=== PATIENT | female | born 1955 | race Hispanic/Latino ===

== ENCOUNTER → 2019-06-04 | Outpatient (CLI) | payer OTHER ==
--- NOTE | 2019-06-04 13:48 | Diagnostic Imaging Report ---
Abdomen, 1 view. History: Renal calculus. Comparison: None available. Findings: Left internal ureteral stent is present. Small stones are projected over the lower pole of the left kidney. A 5 cm stone is seen adjacent to the internal ureteral stent at the level of L4. A large oval calcification in the right upper quadrant is suggestive of calcified gallbladder wall. Air is scattered throughout nondilated small and large bowel. There are no masses or abnormal calcifications. The osseous structures are intact. IMPRESSION: 1. Left renal and ureteral calculi. 2. Possible gallbladder wall calcification. Consider further evaluation with ultrasound or CT. Signed by: Toribio Mann on 06/04/2019 1:45 PM
== END ==
LOC: RAD 12:37
PROVIDERS: ATTEND Urology
DX: N20.0 Calculus of kidney (principal)
CPT/HCPCS: 74018

== ENCOUNTER → 2019-07-15 | Day surgery (SDC) | payer OTHER ==
[~2019-07-15] MED LIST: ACETAMINOPHEN/CODEINE 300MG - 30MG TAB ONE; B&O 60MG R/S 60 MG SUPP PR ONE; BENICAR20 MG PO; CEFAZOLIN SOD 1 GM/NS 50ML 50 ML IV ONE; DEXAMETHASONE SOD PHOS INJ 4 MG/ML VIAL ONE; FENTANYL CITRATE/PF 100MCG/2 ML INJ ONE; HYDRALAZINE HCL 20 MG/ML VIAL ONE; IOPAMIDOL 300MG/ML 50ML INFUS..BTL IV ONE; KETOROLAC TROMETHAMINE 30 MG/ML VIAL ONE; LABETALOL HCL 0 ML ONE; LIDOCAINE HCL 2% LOCAL INJ 5 ML SDV VIAL INJ ONE; MIDAZOLAM HCL 2 MG/2 ML VIAL ONE; ONDANSETRON HCL INJ 2MG/ML 2ML 2 MG/ML VIAL ONE; PROPOFOL IV EMULSION 10 MG/ML 20 ML VIAL ONE; SEVOFLURANE INHAL SOLN 250 ML PEN BTL ONE
--- OUTSIDE RECORDS SUMMARY | 2019-07-15 06:58 | XMS REPORT ---
Author Author [facility] Address Unknown Phone Unavailable Care Team Providers Care Sponge Packer Name Role Phone RAYMUNDO CALDERÓN Unavailable Unavailable Payers Payer Name Policy Type Policy Number Effective Date Expiration Date Problems This patient has no known problems. Allergies, Adverse Reactions, Alerts Allergy Name Allergy Type Status Severity Reaction(s) Onset Date Inactive Date Treating Clinician Comments No Known Allergies DA Active U 2019-04-12 00:00:00 No Known Allergies DA Active U 2018-05-04 00:00:00 Medications This patient has no known medications. Results Test Description Test Time Test Comments Text Results Atomic Results Result Comments [address] ([facility]) 2019-06-04 13:34:00 [place] [address] Patient Name: RUBIO RODRIGUEZ MR #: [id number] : 1955 Age/Sex: 64/F Req #: [id number] [facility] Physician: Ordered by: RAYMUNDO CALDERÓN MD Report #: [id number] Location: [facility] Room/Bed: Procedure: [id number] DX/ABDOMEN-1VIEW (KUB) Exam Date: 06/04/19 Exam Time: 1245 REPORT STATUS: Signed Abdomen, 1 view. History: Renal calculus. Comparison: None available. Findings: Left internal ureteral stent is present. Small stones are projected over the lower pole of the left kidney. A 5 cm stone is seen adjacent to the internal ureteral stent at the level of L4. A large oval calcification in the right upper quadrant is suggestive of calcified gallbladder wall. Air is scattered throughout nondilated small and large bowel. There are no masses or abnormal calcifications. The osseous structures are intact. IMPRESSION: 1. Left renal and ureteral calculi. 2. Possible gallbladder wall calcification. Consider further evaluation with ultrasound or CT. Signed by: Toribio Mann on 06/04/2019 1:45 PM Dictated By: TORIBIO MANN MD 1345 Transcribed By: ZULEIMA on 06/04/19 1345 COPY TO: RAYMUNDO CALDERÓN MD BASIC METABOLIC PANEL 2019-05-19 13:28:00 SODIUM (test code=NA) 141 mmol/L 136-145 POTASSIUM (test code=K) 4.3 mmol/L 3.5-5.1 CHLORIDE (test code=CL) 105.0 mmol/L 98-107 CARBON DIOXIDE (test code=CO2) mmol/L 21-32 ANION GAP (test code=GAP) 10-20 GLUCOSE (test code=GLU) mg/dL 74-106 BLOOD UREA NITROGEN (test code=BUN) mg/dL 7-18 GLOMERULAR FILTRATION RATE (test code=GFR) mL/min >=60 CREATININE (test code=CREAT) mg/dL 0.55-1.02 BUN/CREATININE RATIO (test code=BUN/CREA) 10-20 CALCIUM (test code=CA) mg/dL 8.5-10.1 BASIC METABOLIC [id number] 13:28:00* Test Item Value Reference Range Comments SODIUM (test code=NA) 141 mmol/L 136-145 POTASSIUM (test code=K) 4.3 mmol/L 3.5-5.1 CHLORIDE (test code=CL) 105.0 mmol/L 98-107 CARBON DIOXIDE (test code=CO2) 30.0 mmol/L 21-32 ANION GAP (test code=GAP) 10.3 10-20 GLUCOSE (test code=GLU) 89 mg/dL 74-106 BLOOD UREA NITROGEN (test code=BUN) 12 mg/dL 7-18 GLOMERULAR FILTRATION RATE (test code=GFR) > 60 mL/min >=60 Estimated GFR by using Modified MDRD formula.Chronic kidney disease is defined as either kidney damageor GFR <60 mL/min/1.73 m2 for >3 months. CREATININE (test code=CREAT) 0.70 mg/dL 0.55-1.02 Note change in reference range due to change in reagent. BUN/CREATININE RATIO (test code=BUN/CREA) 17.1 10-20 CALCIUM (test code=CA) 9.6 mg/dL 8.5-10.1 - XR ABDOMEN AP 1 [id number] 14:25:00 FAX: Bia Mock MD [phone] [place]: St: ADM FAX: Raymundo Crow MD [phone] FAX: Craig Larios [facility] [phone] Name: RUBIO RODRIGUEZ [facility] : 1955 Age/S: 64/F [address] [facility] Unit #: [id number] Loc: V.3079 [place] [address] Phys: Raymundo Calderón MD Acct: [id number] Dis Date: Status: ADM IN ONE #: [phone] Exam Date: 04/14/2019 1400 FAX #: [phone] Reason: OBSTRUCTING STONE IN LEFT URETER EXAMS: CPT CODE: [id number] XR ABDOMEN AP 1 V [id number] TECHNIQUE - XR ABDOMEN AP 1 V . COMPARISON: CT abdomen and pelvis 04/14/2019 HISTORY: 64 years Female OBSTRUCTING STONE IN LEFT URE TER FINDINGS: Left ureteral stent i n place. 6 mm stone overlies proximal left ureter stent. Likely no change in position since the previous CT scan. Retention of stool in colon. Nonob structive bowel gas pattern. Gallstones in the gallbladder. IMPRESSION: Left ureteral stent in place. 6 mm stone overlies proximal left ureter stent. Likely no change in position since the pre vious CT scan. Retention of stool in colon. Nonobstructive bowel gas pat tern. Gallstones in the gallbladder. at 1425 Reported and sig nargis by: Craig Mcclure M.D. CC: Bia Mock MD; Raymundo Calderón MD; Craig Larios Technologist: RT GATO([place]) Trnscrd Date/Time/By: 04/14/2019 (7562) : By: Cheli Orig Print D/T: S: 04/14/2019 (4605) PAGE 1 Signed Report COMPREHENSIVE METABOLIC PANEL 2019-04-14 08:36:00* Test Item Value Reference Range Comments SODIUM (test code=NA) 141 mmol/L 136-145 POTASSIUM (test code=K) 3.6 mmol/L 3.5-5.1 CHLORIDE (test code=CL) 108.0 mmol/L 98-107 CARBON DIOXIDE (test code=CO2) 25.0 mmol/L 21-32 ANION GAP (test code=GAP) 11.6 10-20 GLUCOSE (test code=GLU) 119 mg/dL 74-106 BLOOD UREA NITROGEN (test code=BUN) 16 mg/dL 7-18 GLOMERULAR FILTRATION RATE (test code=GFR) > 60 mL/min >=60 Estimated GFR by using Modified MDRD formula.Chronic kidney disease is defined as either kidney damageor GFR <60 mL/min/1.73 m2 for >3 months. CREATININE (test code=CREAT) 0.60 mg/dL 0.55-1.02 Note change in reference range due to change in reagent. BUN/CREATININE RATIO (test code=BUN/CREA) 26.6 10-20 TOTAL PROTEIN (test code=PROT) 6.6 gram/dL 6.4-8.2 ALBUMIN (test code=ALB) 3.1 g/dL 3.4-5.0 GLOBULIN (test code=GLOB) 3.5 gram/dL 2.7-4.2 ALBUMIN/GLOBULIN RATIO (test code=A/G) 0.9 0.75-1.50 CALCIUM (test code=CA) 8.1 mg/dL 8.5-10.1 BILIRUBIN TOTAL (test code=BILT) 0.30 mg/dL 0.0-1.0 SGOT/AST (test code=AST) 33 IUnit/L 15-37 SGPT/ALT (test code=ALT) 62 IUnit/L 12-78 ALKALINE PHOSPHATASE TOTAL (test code=ALKP) 104 IUnit/L 45-117 Note change in reference range due to change in reagent. CBC W/AUTO [id number] 05:30:00* Test Item Value Reference Range Comments WHITE BLOOD CELL (test code=WBC) 7.9 K/mm3 4.5-12.5 RED BLOOD CELL (test code=RBC) 3.86 mill/mm3 3.7-5.2 HEMOGLOBIN (test code=HGB) 11.5 gram/dL 11.5-15.5 HEMATOCRIT (test code=HCT) 34.5 % 36.0-46.0 MEAN CELL VOLUME (test code=MCV) 89.4 fL 80-98 MEAN CELL HGB (test code=MCH) 29.8 picogram 27.0-33.0 MEAN CELL HGB CONCETRATION (test code=MCHC) 33.3 gram/dL 33.0-36.0 RED CELL DISTRIBUTION WIDTH (test code=RDW) 12.0 % 11.6-16.2 RED CELL DISTRIBUTION WIDTH SD (test code=RDW-SD) 38.8 fL 37.0-51.0 PLATELET COUNT (test code=PLT) 226 K/mm3 150-450 MEAN PLATELET VOLUME (test code=MPV) 9.8 fL 6.7-11.0 NEUTROPHIL % (test code=NT%) 73.2 % 39.0-69.0 IMMATURE GRANULOCYTE % (test code=IG%) 0.1 % 0.0-5.0 LYMPHOCYTE % (test code=LY%) 20.1 % 25.0-55.0 MONOCYTE % (test code=MO%) 6.3 % 0.0-10.0 EOSINOPHIL % (test code=EO%) 0.0 % 0.0-5.0 BASOPHIL % (test code=BA%) 0.3 % 0.0-1.0 NUCLEATED RBC % (test code=NRBC%) 0.0 % 0-0 NEUTROPHIL # (test code=NT#) 5.77 K/mm3 1.8-7.7 IMMATURE GRANULOCYTE # (test code=IG#) 0.01 x10 3/uL 0-0.03 LYMPHOCYTE # (test code=LY#) 1.58 K/mm3 1.0-5.0 MONOCYTE # (test code=MO#) 0.50 K/mm3 0-0.8 EOSINOPHIL # (test code=EO#) 0.00 K/mm3 0.0-0.5 BASOPHIL # (test code=BA#) 0.02 K/mm3 0.0-0.2 NUCLEATED RBC # (test code=NRBC#) 0.00 K/mm3 0.0-0.1 MANUAL DIFF REQUIRED (test code=MDIFF) NO COMPREHENSIVE METABOLIC [id number] 08:31:00* Test Item Value Reference Range Comments SODIUM (test code=NA) 141 mmol/L 136-145 POTASSIUM (test code=K) 3.8 mmol/L 3.5-5.1 CHLORIDE (test code=CL) 109.0 mmol/L 98-107 CARBON DIOXIDE (test code=CO2) 26.0 mmol/L 21-32 ANION GAP (test code=GAP) 9.8 10-20 GLUCOSE (test code=GLU) 109 mg/dL 74-106 BLOOD UREA NITROGEN (test code=BUN) 12 mg/dL 7-18 GLOMERULAR FILTRATION RATE (test code=GFR) > 60 mL/min >=60 Estimated GFR by using Modified MDRD formula.Chronic kidney disease is defined as either kidney damageor GFR <60 mL/min/1.73 m2 for >3 months. CREATININE (test code=CREAT) 0.60 mg/dL 0.55-1.02 Note change in reference range due to change in reagent. BUN/CREATININE RATIO (test code=BUN/CREA) 20.0 10-20 TOTAL PROTEIN (test code=PROT) 6.5 gram/dL 6.4-8.2 ALBUMIN (test code=ALB) 3.2 g/dL 3.4-5.0 GLOBULIN (test code=GLOB) 3.3 gram/dL 2.7-4.2 ALBUMIN/GLOBULIN RATIO (test code=A/G) 1.0 0.75-1.50 CALCIUM (test code=CA) 8.5 mg/dL 8.5-10.1 BILIRUBIN TOTAL (test code=BILT) 0.30 mg/dL 0.0-1.0 SGOT/AST (test code=AST) 28 IUnit/L 15-37 SGPT/ALT (test code=ALT) 49 IUnit/L 12-78 ALKALINE PHOSPHATASE TOTAL (test code=ALKP) 85 IUnit/L 45-117 Note change in reference range due to change in reagent. CBC W/AUTO [id number] 08:18:00* Test Item Value Reference Range Comments WHITE BLOOD CELL (test code=WBC) 8.2 K/mm3 4.5-12.5 RED BLOOD CELL (test code=RBC) 3.96 mill/mm3 3.7-5.2 HEMOGLOBIN (test code=HGB) 11.8 gram/dL 11.5-15.5 HEMATOCRIT (test code=HCT) 35.8 % 36.0-46.0 MEAN CELL VOLUME (test code=MCV) 90.4 fL 80-98 MEAN CELL HGB (test code=MCH) 29.8 picogram 27.0-33.0 MEAN CELL HGB CONCETRATION (test code=MCHC) 33.0 gram/dL 33.0-36.0 RED CELL DISTRIBUTION WIDTH (test code=RDW) 12.1 % 11.6-16.2 RED CELL DISTRIBUTION WIDTH SD (test code=RDW-SD) 40.1 fL 37.0-51.0 PLATELET COUNT (test code=PLT) 215 K/mm3 150-450 MEAN PLATELET VOLUME (test code=MPV) 10.0 fL 6.7-11.0 NEUTROPHIL % (test code=NT%) 64.7 % 39.0-69.0 IMMATURE GRANULOCYTE % (test code=IG%) 0.2 % 0.0-5.0 LYMPHOCYTE % (test code=LY%) 25.0 % 25.0-55.0 MONOCYTE % (test code=MO%) 9.0 % 0.0-10.0 EOSINOPHIL % (test code=EO%) 0.6 % 0.0-5.0 BASOPHIL % (test code=BA%) 0.5 % 0.0-1.0 NUCLEATED RBC % (test code=NRBC%) 0.0 % 0-0 NEUTROPHIL # (test code=NT#) 5.27 K/mm3 1.8-7.7 IMMATURE GRANULOCYTE # (test code=IG#) 0.02 x10 3/uL 0-0.03 LYMPHOCYTE # (test code=LY#) 2.04 K/mm3 1.0-5.0 MONOCYTE # (test code=MO#) 0.73 K/mm3 0-0.8 EOSINOPHIL # (test code=EO#) 0.05 K/mm3 0.0-0.5 BASOPHIL # (test code=BA#) 0.04 K/mm3 0.0-0.2 NUCLEATED RBC # (test code=NRBC#) 0.00 K/mm3 0.0-0.1 MANUAL DIFF REQUIRED (test code=MDIFF) NO CBC W/AUTO [id number] 08:16:00* Test Item Value Reference Range Comments WHITE BLOOD CELL (test code=WBC) K/mm3 4.5-12.5 RED BLOOD CELL (test code=RBC) mill/mm3 3.7-5.2 HEMOGLOBIN (test code=HGB) 11.8 gram/dL 11.5-15.5 HEMATOCRIT (test code=HCT) % 36.0-46.0 MEAN CELL VOLUME (test code=MCV) fL 80-98 MEAN CELL HGB (test code=MCH) picogram 27.0-33.0 MEAN CELL HGB CONCETRATION (test code=MCHC) gram/dL 33.0-36.0 RED CELL DISTRIBUTION WIDTH (test code=RDW) % 11.6-16.2 RED CELL DISTRIBUTION WIDTH SD (test code=RDW-SD) fL 37.0-51.0 PLATELET COUNT (test code=PLT) K/mm3 150-450 MEAN PLATELET VOLUME (test code=MPV) fL 6.7-11.0 NEUTROPHIL % (test code=NT%) % 39.0-69.0 IMMATURE GRANULOCYTE % (test code=IG%) % 0.0-5.0 LYMPHOCYTE % (test code=LY%) % 25.0-55.0 MONOCYTE % (test code=MO%) % 0.0-10.0 EOSINOPHIL % (test code=EO%) % 0.0-5.0 BASOPHIL % (test code=BA%) % 0.0-1.0 NEUTROPHIL # (test code=NT#) K/mm3 1.8-7.7 LYMPHOCYTE # (test code=LY#) K/mm3 1.0-5.0 MONOCYTE # (test code=MO#) K/mm3 0-0.8 EOSINOPHIL # (test code=EO#) K/mm3 0.0-0.5 BASOPHIL # (test code=BA#) K/mm3 0.0-0.2 COMPREHENSIVE METABOLIC [id number] 08:09:00* Test Item Value Reference Range Comments SODIUM (test code=NA) 141 mmol/L 136-145 POTASSIUM (test code=K) 3.8 mmol/L 3.5-5.1 CHLORIDE (test code=CL) 109.0 mmol/L 98-107 CARBON DIOXIDE (test code=CO2) mmol/L 21-32 ANION GAP (test code=GAP) 10-20 GLUCOSE (test code=GLU) mg/dL 74-106 BLOOD UREA NITROGEN (test code=BUN) mg/dL 7-18 GLOMERULAR FILTRATION RATE (test code=GFR) mL/min >=60 CREATININE (test code=CREAT) mg/dL 0.55-1.02 BUN/CREATININE RATIO (test code=BUN/CREA) 10-20 TOTAL PROTEIN (test code=PROT) gram/dL 6.4-8.2 ALBUMIN (test code=ALB) g/dL 3.4-5.0 GLOBULIN (test code=GLOB) gram/dL 2.7-4.2 ALBUMIN/GLOBULIN RATIO (test code=A/G) 0.75-1.50 CALCIUM (test code=CA) mg/dL 8.5-10.1 BILIRUBIN TOTAL (test code=BILT) mg/dL 0.0-1.0 SGOT/AST (test code=AST) IUnit/L 15-37 SGPT/ALT (test code=ALT) IUnit/L 12-78 ALKALINE PHOSPHATASE TOTAL (test code=ALKP) IUnit/L 45-117 THYROID PROFILE [id number] 11:23:00* Test Item Value Reference Range Comments T3 UPTAKE (test code=T3UP) 32.0 % 30.0-40.0 T4 (THYROXINE) (test code=T4) 7.6 ug/dL 4.5-13.9 T7 (FREE THYROXINE INDEX) (test code=T7) 2.43 FTI 1.3-5.1 THYROID STIMULATING HORMONE (test code=TSH) 1.470 uIU/mL 0.36-3.74 TSH REFERENCE RANGES: EUTHYROID: 0.35 - 4.3 mIU/mL HYPO : > 5.5 mIU/mL HYPER : < 0.35 mIU/mL [id number] 11:14:00* Test Item Value Reference Range Comments GLYCOSYLATED HEMOGLOBIN (HA1C) (test code=GLYHGB) 5.9 % HbA1 4.8-6.0 ESTIMATED AVERAGE GLUCOSE (test code=EAG) 123 MG/DL - CT ABD PELVIS [id number] 22:23:00 Name: RUBIO RODRIGUEZ [facility] : 1955 Age/S: 64 / F [address] [facility] Unit #: [id number] Loc: [place] [address] Phys: Jeanette Latham MD Acct: [id number] Dis Date: Status: REG ER PHONE #: [phone] Exam Date: 04/11/2019 2210 FAX #: [phone] Reason: luq pain , hx diverticulitis EXAMS: CPT CODE: [id number] CT ABD PELVIS W/CONT 84107 HISTORY: Left upper quadrant abdominal pain , hx diverticulitis TECHNIQUE: Immediate and delayed [address] images were obtained through the abdomen and pelvis after IV administration of 100 mL of Isovue-370 contrast. Sagittal and coronal reformatted images were generated. Automated exposure control for dose reduction. COMPARISON: 05/04/18 FINDINGS: Lung bases are clear. Cardiomegaly. Cholelithiasis. No gall bladder wall thickening or pericholecystic fluid. No biliary dilation. Hepatomegaly. Stable nonenhancing 3 cm right hepatic cyst. Pancreas, spleen, and adrenal glands are unremarkable. Obstructing 8 mm left UPJ calculus (1370 HU). Moderate left hydronephrosis. 3 mm left inf erior pole calyceal calculus. Delayed left nephrogram/pyelogram. Right kidney and collecting system unremarkable. Limited eval uation the GI tract without oral contrast. Stomach, small bowel, appendix are unremarkable. Sigmoid diverticulosis. No free air or free flui d. No lymphadenopathy. Abdominal aorta is normal in caliber. Urinary bladder is unremarkable. Hysterectomy. No pelvic free fluid. Degenerative changes of the spine, sacroiliac joints, and hips. IMPRESSION: Obstructing 8 mm left UPJ calculus with moderate hydronephrosis and delayed nephrogram/pyelogram.. 3 mm left inferior pole calyceal calculus. Cholelithiasis. No CT evidence of acute cholecystitis. No biliary dilation. PAGE 1 Signed Report (CONTINUED) Name: RUBIO RODRIGUEZ [facility] : 1954 Age/S: 64 / F [address] [facility] Unit #: [id number] Loc: [place] [address] Phys: Jeanette Latham MD Acct: [id number] Dis Date: Status: REG ER PHONE #: [phone] Exam Date: 04/11/20192209 FAX #: [phone] Reason: luq pain , hx diverticulitis EXAMS: CPT CODE: [id number] CT ABD PELVIS W/CONT 62602 <Continued> Sigmoid diverticulosis without evidence of diverticulitis. at 2223 Reported and signed by: Mayra Lundy D.O. CC: Jeanette Latham MD Technologist:Christopher Quan, RT(R)(CT); ... CTDI: DLP: Trnscb Date/Time: 04/11/2019 (222) [email or web address] Orig Print D/T: S: 04/11/2019 (2226) PAGE 2 Signed Report BASIC METABOLIC [id number] 21:50:00* Test Item Value Reference Range Comments SODIUM (test code=NA) 138 mmol/L 136-145 POTASSIUM (test code=K) 3.3 mmol/L 3.5-5.1 CHLORIDE (test code=CL) 104.0 mmol/L 98-107 CARBON DIOXIDE (test code=CO2) 28.0 mmol/L 21-32 ANION GAP (test code=GAP) 9.3 10-20 GLUCOSE (test code=GLU) 166 mg/dL 74-106 BLOOD UREA NITROGEN (test code=BUN) 16 mg/dL 7-18 GLOMERULAR FILTRATION RATE (test code=GFR) > 60 mL/min >=60 Estimated GFR by using Modified MDRD formula.Chronic kidney disease is defined as either kidney damageor GFR <60 mL/min/1.73 m2 for >3 months. CREATININE (test code=CREAT) 0.90 mg/dL 0.55-1.02 Note change in reference range due to change in reagent. BUN/CREATININE RATIO (test code=BUN/CREA) 17.5 10-20 CALCIUM (test code=CA) 9.8 mg/dL 8.5-10.1 HEPATIC FUNCTION [id number] 21:50:00* Test Item Value Reference Range Comments TOTAL PROTEIN (test code=PROT) 7.7 gram/dL 6.4-8.2 ALBUMIN (test code=ALB) 3.9 g/dL 3.4-5.0 GLOBULIN (test code=GLOB) 3.8 gram/dL 2.7-4.2 ALBUMIN/GLOBULIN RATIO (test code=A/G) 1.0 0.75-1.50 BILIRUBIN TOTAL (test code=BILT) 0.40 mg/dL 0.0-1.0 BILIRUBIN DIRECT (test code=BILD) 0.13 mg/dL 0.0-0.20 SGOT/AST (test code=AST) 15 IUnit/L 15-37 SGPT/ALT (test code=ALT) 46 IUnit/L 12-78 ALKALINE PHOSPHATASE TOTAL (test code=ALKP) 96 IUnit/L 45-117 Note change in reference range due to change in reagent. [id number] 21:50:00* Test Item Value Reference Range Comments LIPASE (test code=LIP) 145 U/L 73.0-393.0 URINALYSIS [id number] 21:47:00* Test Item Value Reference Range Comments UA COLOR (test code=COLU) Light-Yellow YELLOW UA APPEARANCE (test code=APPU) CLEAR CLEAR UA GLUCOSE DIPSTICK (test code=DGLUU) NEGATIVE mg/dL NEGATIVE UA BILIRUBIN DIPSTICK (test code=BILU) NEGATIVE mg/dL NEGATIVE UA KETONE DIPSTICK (test code=KETU) NEGATIVE mg/dL NEGATIVE UA SPECIFIC GRAVITY (test code=SGU) 1.014 1.001-1.035 UA BLOOD DIPSTICK (test code=BRIDGETTE) 0.5 mg/dL (2+) mg/dL NEGATIVE UA PH DIPSTICK (test code=ZOILA) 6.0 5.0-8.0 UA PROTEIN DIPSTICK (test code=PROU) 10 (Trace) mg/dL NEGATIVE UA UROBILINIOGEN DIPSTICK (test code=URO) Normal mg/dL NEGATIVE UA NITRITE DIPSTICK (test code=MARTIN) NEGATIVE NEGATIVE UA LEUKOCYTE ESTERASE W REFLEX (test code=LEUUR) NEGATIVE Amanda/uL NEGATIVE UA WBC (test code=WBCU) 0-5 per HPF 0-5 UA RBC (test code=RBCU) 101-150 #/HPF 0-5 UA EPITHELIAL CELLS (test code=EPIU) FEW per HPF FEW UA BACTERIA (test code=BACU) NONE SEEN #/HPF NONE UA MUCUS (test code=MUCU) FEW #/LPF FEW Urine Source? Clean CatchBASIC METABOLIC [id number] 21:45:00* Test Item Value Reference Range Comments SODIUM (test code=NA) 138 mmol/L 136-145 POTASSIUM (test code=K) 3.3 mmol/L 3.5-5.1 CHLORIDE (test code=CL) 104.0 mmol/L 98-107 CARBON DIOXIDE (test code=CO2) mmol/L 21-32 ANION GAP (test code=GAP) 10-20 GLUCOSE (test code=GLU) mg/dL 74-106 BLOOD UREA NITROGEN (test code=BUN) mg/dL 7-18 GLOMERULAR FILTRATION RATE (test code=GFR) mL/min >=60 CREATININE (test code=CREAT) mg/dL 0.55-1.02 BUN/CREATININE RATIO (test code=BUN/CREA) 10-20 CALCIUM (test code=CA) mg/dL 8.5-10.1 HEPATIC FUNCTION [id number] 21:45:00* Test Item Value Reference Range Comments TOTAL PROTEIN (test code=PROT) gram/dL 6.4-8.2 ALBUMIN (test code=ALB) g/dL 3.4-5.0 GLOBULIN (test code=GLOB) gram/dL 2.7-4.2 ALBUMIN/GLOBULIN RATIO (test code=A/G) 0.75-1.50 BILIRUBIN TOTAL (test code=BILT) mg/dL 0.0-1.0 BILIRUBIN DIRECT (test code=BILD) mg/dL 0.0-0.20 SGOT/AST (test code=AST) IUnit/L 15-37 SGPT/ALT (test code=ALT) IUnit/L 12-78 ALKALINE PHOSPHATASE TOTAL (test code=ALKP) IUnit/L 45-117 [id number] 21:45:00* Test Item Value Reference Range Comments LIPASE (test code=LIP) U/L 73.0-393.0 CBC W/O [id number] 20:59:00* Test Item Value Reference Range Comments WHITE BLOOD CELL (test code=WBC) 11.7 K/mm3 4.5-12.5 RED BLOOD CELL (test code=RBC) 4.45 mill/mm3 3.7-5.2 HEMOGLOBIN (test code=HGB) 13.2 gram/dL 11.5-15.5 HEMATOCRIT (test code=HCT) 40.3 % 36.0-46.0 MEAN CELL VOLUME (test code=MCV) 90.6 fL 80-98 MEAN CELL HGB (test code=MCH) 29.7 picogram 27.0-33.0 MEAN CELL HGB CONCETRATION (test code=MCHC) 32.8 gram/dL 33.0-36.0 RED CELL DISTRIBUTION WIDTH (test code=RDW) 12.1 % 11.6-16.2 PLATELET COUNT (test code=PLT) 229 K/mm3 150-450 MEAN PLATELET VOLUME (test code=MPV) 9.5 fL 6.7-11.0 CBC W/O [id number] 20:58:00* Test Item Value Reference Range Comments WHITE BLOOD CELL (test code=WBC) K/mm3 4.5-12.5 RED BLOOD CELL (test code=RBC) mill/mm3 3.7-5.2 HEMOGLOBIN (test code=HGB) 13.2 gram/dL 11.5-15.5 HEMATOCRIT (test code=HCT) 40.3 % 36.0-46.0 MEAN CELL VOLUME (test code=MCV) fL 80-98 MEAN CELL HGB (test code=MCH) picogram 27.0-33.0 MEAN CELL HGB CONCETRATION (test code=MCHC) gram/dL 33.0-36.0 RED CELL DISTRIBUTION WIDTH (test code=RDW) % 11.6-16.2 PLATELET COUNT (test code=PLT) K/mm3 150-450 MEAN PLATELET VOLUME (test code=MPV) fL 6.7-11.0 SCR MAMM BILATERAL AGUEDA CAD [id number] 09:16:04 - SCR MAMM BILATERAL AGUEDA CAD DIGITALBILATERAL DIGITAL SCREENING MAMMOGRAM 3D/2D WITH CAD: 03/16/2019CLINICAL: Asymptomatic. Digital breast tomosynthesis was performed in addition to routine CC and MLO views. Current mammographic images were evaluated by either a [employer] M-Vu or a [employer] ImageChecker CAD (computer aided detection system). Comparison is made to exams dated 05/31/2016 mammogram and 07/05/2010 mammogram - [facility]-. The tissue of both breasts is heterogeneously dense. This may lower the sensitivity of mammography. A 5 mm focal asymmetry, in the left upper outer quadrant, approximately 6 cm from the nipple, this is best seen on CC slice #30.No suspicious mass, architectural dis tortion, malignant type calcification, or lymph node abnormality detected in the right breast. IMPRESSION: INCOMPLETE ASSESSMENT: ADDITIONAL IMAGING EVALUATION RECOMMENDEDA 5 mm focal asymmetry, in the left upper outer quadrant, posterior depth. Spot compression tomosynthesis and possible ultrasound are recommended a t this time.Arias Dozier M.D. ss/:03/18/2019 09:16:04 Imaging Genevieve hnologist: Celsa Vines , [facility]-FWletter sent: Additional Jeanne ging Mammogram BI-RADS: 0 Indeterminate
[2019-07-15 12:15] VITALS: BP 110/57
--- NOTE | 2019-07-15 15:31 | Operative Report ---
DATE OF PROCEDURE: 07/15/2019 SURGEON: Raymundo Calderón MD SERVICE: Urology. PREOPERATIVE DIAGNOSES: 1. Left nephrolithiasis. 2. Left ureterolithiasis. 3. Double-J stents. 4. Microhematuria. POSTOPERATIVE DIAGNOSES: 1. Left nephrolithiasis. 2. Left ureterolithiasis. 3. Double-J stents. 4. Microhematuria. OPERATIONS PERFORMED: 1. Cystoscopy and right retrograde pyelograms under fluoroscopic control, not related to the other side. 2. Removal of double-J stent from the left side. 3. Left retrograde pyelograms under fluoroscopic control. 4. Left ureteroscopy with laser fragmentation of the kidney stones and laser fragmentation of ureter stone. 5. Removal of stone with stone basket. 6. Placement of double-J stent to the left side, 7-Finnish 24 cm long. 7. Interpretation of x-ray, radiologist not present. 8. Supervision of fluoroscopy, radiologist not present. SECURITIES SETTLEMENT PROCESSOR: None. ANESTHESIA: General. CLINICAL INDICATION NOTE: This is a 64-year-old patient, who came for further treatment of nephrolithiasis. She does have a stone on the left side. The procedure was discussed with the patient. She is aware that she may need a stent for a longer period of time. DESCRIPTION OF PROCEDURE AND FINDINGS: After proper level of anesthesia was achieved, the patient was placed in lithotomy position, prepped and draped in a sterile fashion. Urethra inspected is unremarkable. Bladder outlet is normal. Bladder mucosa has no tumor. Double-J stent was protruding from the left side and appeared to be quite calcified already. Open-end catheter was inserted to the right side. Retrograde pyelogram demonstrated an unremarkable collecting system and ureter. Drainage was prompt. Following this, an open-end catheter was inserted by the double-J stent and it was removed. Retrograde pyelogram demonstrating some dilation of the upper collecting system, not clearly seen any calcification along the ureter. A wire was kept in place and a flexible ureteroscopy was done. Small fragments of stone were identified in the lower pole and fragmented with the holmium laser with 200 fiber. Following this, additional stones were fragmented along with the ureter with a semi-rigid ureteroscope. Stone was also removed with the stone basket and sent for analysis. A guidewire was kept in place and a 7-Finnish 24 cm long double-J stent was properly positioned on the left side. Interpretation of x-ray was done by me and supervision of fluoroscopy done by me, radiologist not present. Follow up for the patient given. The patient was able to void before discharge. She will follow in the office and advised that should any acute problem evolve to come to the ER. MD EVERETT Redmond/KILEY /[id number]
== END | disposition home or self-care (01) ==
LOC: OR 06:55
PROVIDERS: ATTEND Urology
DX: N20.0 Calculus of kidney (principal); N20.1 Calculus of ureter; Z46.6 Encounter for fitting and adjustment of urinary device; I10 Essential (primary) hypertension; K57.90 Diverticulosis of intestine, part unspecified, without perforation or abscess without bleeding; Z01.810 Encounter for preprocedural cardiovascular examination
CPT/HCPCS: 52356; 74420; 88300; 93005; C1758; C2617; J0360; J0690; J1100; J1885; J2001; J2250; J2405; J2704; J3010; Q9967

== ENCOUNTER → 2019-08-06 | Outpatient (CLI) | payer OTHER ==
[~2019-08-06] MED LIST changes: -ACETAMINOPHEN/CODEINE 300MG - 30MG TAB ONE; -B&O 60MG R/S 60 MG SUPP PR ONE; -CEFAZOLIN SOD 1 GM/NS 50ML 50 ML IV ONE; -DEXAMETHASONE SOD PHOS INJ 4 MG/ML VIAL ONE; -FENTANYL CITRATE/PF 100MCG/2 ML INJ ONE; -HYDRALAZINE HCL 20 MG/ML VIAL ONE; -IOPAMIDOL 300MG/ML 50ML INFUS..BTL IV ONE; -KETOROLAC TROMETHAMINE 30 MG/ML VIAL ONE; -LABETALOL HCL 0 ML ONE; -LIDOCAINE HCL 2% LOCAL INJ 5 ML SDV VIAL INJ ONE; -MIDAZOLAM HCL 2 MG/2 ML VIAL ONE; -ONDANSETRON HCL INJ 2MG/ML 2ML 2 MG/ML VIAL ONE; -PROPOFOL IV EMULSION 10 MG/ML 20 ML VIAL ONE; -SEVOFLURANE INHAL SOLN 250 ML PEN BTL ONE
--- NOTE | 2019-08-06 17:21 | Diagnostic Imaging Report ---
Exam: KUB - 2 views Indication: Renal calculi Comparison: KUB of 06/04/2019 Findings: Left internal nephroureteral stent in place. Left lower pole renal calculi measure up to 4 mm. Unchanged appearance of porcelain gallbladder. Mild degenerative changes of the spine and both hip joints. Nonobstructive bowel gas pattern. No free air. Impression: Left internal nephroureteral stent in place. Left lower pole renal calculi measure up to 4 mm. Porcelain gallbladder. Signed by: Jumana Preston MD on 08/06/2019 5:17 PM
== END ==
LOC: RAD 14:05
PROVIDERS: ATTEND Urology
DX: N20.0 Calculus of kidney (principal)
CPT/HCPCS: 74018

== ENCOUNTER → 2019-08-18 | Day surgery (SDC) | payer OTHER ==
[~2019-08-18] MED LIST changes: +B&O 60MG R/S 60 MG SUPP PR ONE; +CEFAZOLIN SOD 1 GM/NS 50ML 50 ML IV ONE; +DEXAMETHASONE SOD PHOS INJ 4 MG/ML VIAL ONE; +FENTANYL CITRATE/PF 100MCG/2 ML INJ ONE; +IOPAMIDOL 300MG/ML 50ML INFUS..BTL IV ONE; +LIDOCAINE HCL 2% LOCAL INJ 5 ML SDV VIAL INJ ONE; +MIDAZOLAM HCL 2 MG/2 ML VIAL ONE; +ONDANSETRON HCL INJ 2MG/ML 2ML 2 MG/ML VIAL ONE; +PROPOFOL IV EMULSION 10 MG/ML 20 ML VIAL ONE; +SEVOFLURANE INHAL SOLN 250 ML PEN BTL ONE
[2019-08-18 13:45] VITALS: BP 128/72
--- NOTE | 2019-08-18 19:02 | Operative Report ---
DATE OF PROCEDURE: 08/18/2019 SURGEON: Raymundo Calderón MD SERVICE: Urology. PREOPERATIVE DIAGNOSES: 1. History of left nephrolithiasis. 2. Left double-J stent. 3. Left hydronephrosis. 4. Microhematuria. POSTOPERATIVE DIAGNOSES: 1. History of left nephrolithiasis. 2. Left double-J stent. 3. Left hydronephrosis. 4. Microhematuria. OPERATIONS PERFORMED: 1. Cystoscopy and right retrograde pyelogram were obtained under fluoroscopy control. This is done, not related to the contralateral side as part of the assessment of microhematuria. 2. Removal of double-J stent from the left side. 3. Left retrograde pyelograms under fluoroscopic control. 4. Left diagnostic ureteroscopy. 5. X-ray interpretation. 6. Supervision of fluoroscopy, radiologist not present. WIREWORKER SUPERVISOR: None. ANESTHESIA: General. CLINICAL INDICATION NOTE: This is a 64-year-old patient, who was brought for the further assessment of left nephrolithiasis. She has a double-J stent in place with some dilation of the upper collecting system. The procedure was discussed with the patient. Potential benefit and complication discussed, explained and accepted. DESCRIPTION OF PROCEDURE AND FINDINGS: After appropriate level of anesthesia was achieved, the patient was placed in lithotomy position, prepped and draped in a sterile fashion. Her urethra inspected, appeared to be unremarkable. Pathology is normal. Bladder mucosa is normal. Double-J stent is protruding from the left ureteral orifice. Right UO normal. Open-end catheter was inserted to the right side. Retrograde pyelogram demonstrating a normal upper collecting system and ureter prompt drainage. No blockage of stones. Following this, the left Double-J stent was removed. Open-end catheter was inserted. Retrograde pyelogram demonstrating some dilation of the upper collecting system. No clear history of stones could be seen. A wire was kept in place and a flexible ureteroscopy was done. Stones were not identified in the ureter or the renal pelvis and therefore it is elected not to place a double-J stent. Scope was removed and the bladder was irrigated and the patient was transferred in satisfactory condition to recovery room. She will be followed for further assessment of stone metabolites. NeMD EVERETT Sal/MODL /[id number]
== END | disposition home or self-care (01) ==
LOC: OR 10:00
PROVIDERS: ATTEND Urology
DX: Z46.6 Encounter for fitting and adjustment of urinary device (principal); N13.30 Unspecified hydronephrosis; R31.29 Other microscopic hematuria; Z87.442 Personal history of urinary calculi
CPT/HCPCS: 52310; 74420; C1758; J0690; J1100; J2001; J2250; J2405; J2704; J3010; Q9967